=== PATIENT | female | born 1995 | race Caucasian/White ===

== ENCOUNTER 2019-05-09 00:01 | Inpatient (IN) ==
[2019-05-09] MEDS ORDERED: ONDANSETRON 4 MG TAB.RAPDIS PO PRN (00:05)
[2019-05-09] MEDS ORDERED: DEXTROSE 5%-LACTATED RINGERS 1,000 ML IV PRN (00:05)
[2019-05-09] MEDS ORDERED: OXYTOCIN/DEXTROSE 5%-WATER 30 UNITS/500 ML BAG IV ONE (00:05)
[2019-05-09] MEDS ORDERED: RINGER'S SOLUTION,LACTATED 1,000 ML IV ONE (00:05)
[2019-05-09] MEDS ORDERED: MISOPROSTOL 100 MCG TABLET VG PRN (00:05)
[2019-05-09 03:10] LABS: Cocaine Ur Negative (NEGATIVE); Urine Barbiturate Negative (NEGATIVE); Urine Benzodiazepines Negative (NEGATIVE); Urine Opiates Negative (NEGATIVE); Urine PCP Negative (NEGATIVE); Urine THC Negative (NEGATIVE)
--- NOTE | 2019-05-09 12:04 | HP ---
Chief Complaint - Chief Complaint Date of Service: 05/09/19 Time of Service: 12:03 - seen 0830 this am Chief Complaint: elective induction of labor History of Present Illness: 23 yo at 39 3/7 weeks admitted for elective induction of labor. This complicated by breech presentation with spontaneous conversion to cephalic at 37+ wks, and former smoker. Rh positive Rubellla nonimmune GBS negative Medical History (Updated 05/09/19 @ 12:04 by Dejuan Gold DO) Tobacco abuse (Chronic) 5 cig/d on 11/17/18. Anemia Onset Date: 02/17/19 w/ Blood in stool Constipation Diarrhea Dysmenorrhea Frequent headaches GERD (gastroesophageal reflux disease) Hemorrhoids Labial cyst Onset Date: ~08/18/17 Marijuana abuse Tobacco abuse Onset Date: ~08/18/17 Epidermoid cyst of labia majora (Resolved) excised. healing well. History of trichomoniasis Onset Date: ~08/18/17 History of wisdom tooth extraction Onset Date: ~2007 Ovarian cyst Onset Date: ~2002 Surgical History: Surgical History (Updated 04/26/19 @ 15:07 by Dejuan Gold DO) Status post excisional biopsy Onset Date: 05/04/18 Right labial cyst-No atypia or malignant neoplasia present History of esophagogastroduodenoscopy (EGD) 2008 [facility]-Neg, 2015-Mild to Moderate reflux esophagitis. History of laparoscopy Onset Date: ~2015 pelvic pain, dysmenorrhea-[facility] H/O colonoscopy with polypectomy Onset Date: ~2008 2008-[facility] polyps, 2015-benign polyp. recheck 10 years Family History: Family History (Updated 04/11/18 @ 16:25 by Alexa Pascal LPN) Father Hypertension Kidney disease Liver disease Benign essential tremor Mother Hypertension Cleft lip and cleft palate Diabetes borderline Grandfather Myocardial infarction Cancer Colon CA, leukemia Brother History of congenital heart defect Social History: (Last Updated 05/02/19 @ 10:02 by Dejuan Gold DO) Social History: adopted: No mcc: No Marital status: Single household members: significant other, children current occupational status: employed current occupation: [employer] current occupational exposures/hazards: No Highest education level completed: high school graduate Service: No Tobacco: Smoking Status: Current every day smoker tobacco type: cigarettes, e-cigarettes Smokeless tobacco user: chewing tobacco Alcohol: alcohol intake: former alcohol intake frequency: holiday/special occasion details: no alcohol since Substance Use: substance use type: former substance user Dietary Habits: caffeine: Yes caffeine comment: 20 oz Type: carbonated beverages Exercise: Physical activity type: none Review Of Systems (GEN) - Review of Systems Generalized/Overall Review: Present: No Symptoms Reported EENTM: Present: No Symptoms Reported Respiratory: Present: No Symptoms Reported Cardiac: Present: No Symptoms Reported Abdominal: Present: No Symptoms Reported Genitourinary: Present: No Symptoms Reported Musculoskeletal: Present: No Symptoms Reported Neurological: Present: No Symptoms Reported Skin: Present: No Symptoms Reported Endocrine: Present: No Symptoms Reported Immunizations: IMMUNIZATION HX Immunizations Up to Date Yes History of Influenza Vaccine No Hx Pneumococcal Vaccination No Allergies/Adverse Reactions: Allergies Allergy/AdvReac Type Severity Reaction Status Date / Time hydrocodone bitartrate AdvReac Mild ITCHING, Verified 05/02/19 09:03 [From Vicodin] RESTLESS, OCC RASH Home Medications: HOME MEDICATIONS acetaminophen 500 mg tablet 1,000 mg PO Q6H PRN tab 05/17/18 [Last Taken Unknown] breast pump See Dose Instructions .ROUTE .MEDSUPPLY #1 ea 11/18/18 [Last Taken Unknown] calcium carbonate 200 mg calcium (500 mg) chewable tablet 600 mg PO DAILY PRN tab 02/17/19 [Last Taken Unknown] Vits96/Iron Fum/Folic [ S] 1 tab PO DAILY 04/26/19 [Last Taken Unknown] Exam - Exam Vital Signs: Vital Signs - Last Taken Temp 36.8 C 05/09/19 00:30 Pulse 82 05/09/19 00:30 Resp 16 05/09/19 00:30 BP 99/58 05/09/19 00:30 Pulse Ox 97 05/09/19 00:30 Constitutional: Present: Alert, Oriented x3, Cooperative, No distress ENT Exam: Present: hearing grossly normal Breasts: Present: Exam deferred Respiratory: Present: lungs clear, no respiratory distress Cardiovascular/Chest: Present: normal peripheral pulses, regular rate, rhythm, no edema Abdomen: Present: soft, nontender, no rebound tenderness, other - gravid /Rectal: Present: Other - 1/50/-3 Extremity: Present: no pedal edema, no calf tenderness Skin Exam: Present: normal color, warm/dry, no cyanosis Neurologic: Present: alert, normal mood/affect, oriented x 3 Appearance: Present: appropriate appearance, appropriate insight Eye contact: Present: cooperative, good eye contact Thoughts: Present: normal thought pattern, normal mood /affect Diagnostic Studies: Laboratory Results Negative (NEGATIVE) 05/09/19 02:53 Negative (NEGATIVE) 05/09/19 02:53 Ur Phencyclidine Scrn Negative (NEGATIVE) 05/09/19 02:53 Urine Amphetamine Negative (NEGATIVE) 05/09/19 02:53 U Benzodiazepines Scrn Negative (NEGATIVE) 05/09/19 02:53 Negative (NEGATIVE) 05/09/19 02:53 Negative (NEGATIVE) 05/09/19 02:53 NST reactive Assessment/Plan - Assessment/Plan (1) Encounter for elective induction of labor Assessment: R/b/a to elective induction of labor discussed with patient. She desires to proceed with elective induction. Admit for Cytotec/Pitocin induction of labor. Epidural PRN. Rubella vaccine in office at PP visit. Problem: Acute (2) Rubella non-immune status, antepartum Problem: Acute
--- NOTE | 2019-05-09 12:05 | PN ---
Progess Note - Interim Date: 05/09/19 Time: 12:04 - Seen at 0830 this am Narrative: 05/09/19 12:04 Patient rating her contractions a 6-7 out of 10 Vital signs stable. Pitocin at 3 mu/min. FHT: 120 baseline, reassuring contractions q 2-3 min Cervix: 11/16 5/-3 Impression: Intrauterine at 39 3/7 weeks. Elective induction of labor Plan: Continue present plan 05/09/19 12:07
[2019-05-09] MEDS ORDERED: NALOXONE HCL 1 MG/1 ML SYRG IV PRN (13:52)
[2019-05-09] MEDS ORDERED: ONDANSETRON HCL/PF 2 MG/ML VIAL IV PRN (13:52)
[2019-05-09] MEDS ORDERED: BUPIVACAINE HCL/0.9 % NACL/PF 250 ML EP PRN (13:52)
[2019-05-09] MEDS ORDERED: fentaNYL CITRATE/PF 50 MCG/ML AMPUL IT SCH (14:00)
--- NOTE | 2019-05-09 15:39 | ANES ---
Anesthesia Pre Procedure Eval Vitals/Labs: Last Vital Signs Temp 36.8 C 05/09/19 00:30 Pulse 82 05/09/19 00:30 Resp 16 05/09/19 00:30 BP 99/58 05/09/19 00:30 Pulse Ox 97 05/09/19 00:30 HOME MEDICATIONS acetaminophen 500 mg tablet 1,000 mg PO Q6H PRN tab 05/17/18 [Last Taken Unknown] breast pump See Dose Instructions .ROUTE .MEDSUPPLY #1 ea 11/18/18 [Last Taken Unknown] calcium carbonate 200 mg calcium (500 mg) chewable tablet 600 mg PO DAILY PRN tab 02/17/19 [Last Taken Unknown] Vits96/Iron Fum/Folic [ S] 1 tab PO DAILY 04/26/19 [Last Taken Unknown] Allergies/Adverse Reactions: Allergies Allergy/AdvReac Type Severity Reaction Status Date / Time hydrocodone bitartrate AdvReac Mild ITCHING, Verified 05/02/19 09:03 [From Vicodin] RESTLESS, OCC RASH - Planned Procedure Planned Procedure: ELECTIVE INDUCTION 39 WKS 3 DAYS Medication List Reviewed:: Yes Allergies Verified: Yes Medical History (Updated 05/09/19 @ 12:34 by Dejuan Gold DO) Tobacco abuse (Chronic) 5 cig/d on 11/17/18. Anemia Onset Date: 02/17/19 w/ Blood in stool Constipation Diarrhea Dysmenorrhea Frequent headaches GERD (gastroesophageal reflux disease) Hemorrhoids Labial cyst Onset Date: ~08/18/17 Marijuana abuse Tobacco abuse Onset Date: ~08/18/17 Epidermoid cyst of labia majora (Resolved) excised. healing well. History of trichomoniasis Onset Date: ~08/18/17 History of wisdom tooth extraction Onset Date: ~2007 Ovarian cyst Onset Date: ~2002 Surgical History (Updated 04/26/19 @ 15:07 by Dejuan Gold DO) Status post excisional biopsy Onset Date: 05/04/18 Right labial cyst-No atypia or malignant neoplasia present History of esophagogastroduodenoscopy (EGD) 2008 [facility]-Neg, 2014-Mild to Moderate reflux esophagitis. History of laparoscopy Onset Date: ~2015 pelvic pain, dysmenorrhea-[facility] H/O colonoscopy with polypectomy Onset Date: ~2008 2008-[facility] polyps, 2015-benign polyp. recheck 10 years Family History (Updated 04/11/18 @ 16:25 by Alexa Pascal LPN) Father Hypertension Kidney disease Liver disease Benign essential tremor Mother Hypertension Cleft lip and cleft palate Diabetes borderline Grandfather Myocardial infarction Cancer Colon CA, leukemia Brother History of congenital heart defect - Family Anesthesia History Family History:: no untoward family reactions to anesthesia - Airway/Neck/Teeth Within Normal Limits:: Yes Teeth Condition: intact Neck Exam: full range of motion Mallampatti Score: 1 Thyromental (T-M) distance: > 6 cm Mandibulo Hyoid distance: > 3 cm - Respiratory Respiratory Physical: lungs clear Smoking Status: Former smoker Sleep Apnea currently treated: No Sleep Apnea by current assessment: No - Cardiovascular Tolerate Activity: Good Heart Sounds: S1 & S2, Regular - Anesthesia Assessment and Plan ASA Class: PS, II, E Anesthesia Type Plan: Epidural Planned difficult intubation/equipment available: No
--- NOTE | 2019-05-09 15:40 | ANES ---
Post Anesthesia Discharge - Transfer of Care Transfer of Care handoff given to nurse: Yes - Anesthesia Post Op Note Anesthesia Post Op Note: Care transferred to OB RN
--- NOTE | 2019-05-09 15:40 | ANES ---
Post Anesthesia Assessment - Vital Signs Vitals: Last Vital Signs Temp 36.8 C 05/09/19 00:30 Pulse 82 05/09/19 00:30 Resp 16 05/09/19 00:30 BP 99/58 05/09/19 00:30 Pulse Ox 97 05/09/19 00:30 Airway Patency: Normal - Mental Status Level Of Consciousness: Awake - Pain Level Pain Score: 2 - N/V Assessment Nausea/Vomiting Presence: None Dehydration:: No
--- NOTE | 2019-05-09 15:42 | ANES ---
Anesthesia Procedure Note Procedure Note: ANESTHESIA PROCEDURE NOTE Date of Procedure: 05/09/2019 Time of procedure: 1525. Performed by: Gilbert Constantino CRNA Dining Room Host: None. Preprocedure diagnosis: Active labor. Post procedure diagnosis: Same. Procedure: Insertion of labor epidural. Indications: The patient is a 23-year-old multigravida female in active labor requesting labor epidural for pain management. Findings: See below. Details of the procedure: The patient was placed in a sitting position. Back was prepped with DuraPrep. Patient was then draped in a sterile fashion. Lidocaine 1% was infiltrated to the skin and subcutaneous tissues at the level of the L3 4 interspace. The epidural space was identified using a 18-gauge Tuohy needle with [id number] technique. 20 mcg fentanyl was given intrathecally using a 27 ga. spinal needle. Epidural catheter was inserted without difficulty. Negative test dose was elicited using 5 mL of 1.5% preservative-free lidocaine plus epinephrine 1 200,000. The epidural catheter was then taped and secured in place. EBL: Minimal. Fluids: N/A. Specimen: N/A. Post procedure condition: The patient tolerated the procedure well. No complications were noted. Thank you for this consultation. Freeman CRNA
--- NOTE | 2019-05-09 18:50 | PN ---
Progess Note - Interim Date: 05/09/19 Time: 18:46 Narrative: Patient comfortable with epidural Vital signs stable. Pitocin at 9 mu/min. FHT: 120 baseline, reassuring contractions q 2-3 min Cervix: 8/60/-3, AROM-clear Impression: Intrauterine at 39 weeks. Elective induction of labor. Plan: Anticipate normal spontaneous vaginal delivery soon
--- NOTE | 2019-05-10 05:39 | PN ---
Progess Note - Interim Date: 05/10/19 Time: 05:33 Narrative: 05/10/19 05:33 Patient comfortable with epidural Vital signs stable. Pitocin at 7 mu/min. FHT: 140 baseline, just recently began having early decelerations with occasional late deceleration, good lsft-vs-xpyw variability contractions q 2-3 min Cervix: 8/90/-2, baby comes down to +1 with contraction, unable to reduce cervix over baby's head Impression: Intrauterine at 39-4/7 weeks. Elective induction of labor with protracted dilation Plan: Multiple position changes have been tried will continue with additional position changes for the next 2030 minutes, if no change will proceed with section. Risks benefits alternatives to section discussed with patient and family. All questions answered.
--- NOTE | 2019-05-10 06:58 | OR ---
Operative Report - Dictated Report Narrative: Spontaneous vaginal delivery of vigorously crying viable male at 0634 on 05/10/2019 with Apgars 9 and 9, weighing 3329 g in CAS position. Cord clamping delayed approximately 1 minute Placenta delivered complete, intact, with three vessel cord Estimated blood loss: Less than 50 ml Anesthesia: Epidural Lacerations: None History for MU History for MU Definition: * The number of deliveries resulting in a live the patient experienced prior to current hospitalization * The previous delivery of live twins or any live multiple gestation is considered one live event. *If primagravida or nulliparous is documented select zero for the number of previous live births. Live Events: Live Events: 1
[2019-05-10] MEDS ORDERED: HYDROCORTISONE 30 APPL TUBE TP PRN (07:04)
[2019-05-10] MEDS ORDERED: BISACODYL 10 MG SUPP.RECT RC PRN (07:04)
[2019-05-10] MEDS ORDERED: GLYCERIN/WITCH HAZEL LEAF 40 APPL BOX TP PRN (07:04)
[2019-05-10] MEDS ORDERED: SENNOSIDES 8.6 MG TABLET PO PRN (07:04)
[2019-05-10] MEDS ORDERED: ACETAMINOPHEN 325 MG TABLET PO PRN (07:04)
[2019-05-10] MEDS ORDERED: OXYTOCIN/DEXTROSE 5%-WATER 30 UNITS/500 ML BAG IV ONE (07:04)
[2019-05-10] MEDS ORDERED: BENZOCAINE/MENTHOL 81 SPRAY CAN TP PRN (07:04)
[2019-05-10] MEDS ORDERED: CALCIUM CARBONATE 500 MG TAB.CHEW PO PRN (07:05)
[2019-05-10] MEDS: IBUPROFEN 800 MG TABLET PO PRN ×2 (09:01→15:06)
[2019-05-10] MEDS: PRENATAL VITS96/IRON FUM/FOLIC 1 TAB TABLET PO SCH (09:02)
[2019-05-10] MEDS: DOCUSATE SODIUM 100 MG CAPSULE PO SCH ×2 (09:02→20:56)
[2019-05-10] MEDS: oxyCODONE HCL/ACETAMINOPHEN 1 TAB TABLET PO PRN ×3 (11:28→20:56)
[2019-05-11] MEDS: oxyCODONE HCL/ACETAMINOPHEN 1 TAB TABLET PO PRN ×4 (00:58→23:41)
--- NOTE | 2019-05-11 06:47 | PN ---
Subjective - Date and Time Seen Date: 05/11/19 Time: 06:46 Objective - Vitals Vitals: Last Vital Signs Temp 36.6 C 05/11/19 00:44 Pulse 64 05/11/19 00:44 Resp 16 05/11/19 00:44 BP 112/59 05/11/19 00:44 Pulse Ox 98 05/11/19 00:44 Patient denies complaints. Breast-feeding well Lochia wnl abdomen - soft, nontender Uterus -firm, at umbilicus - 1 no calf tenderness Impression: day #1 - s/p spontaneous vaginal delivery. Plan: Continue routine care Cauti Physician Documentation - Urinary Catheter Management Urethral ([place]son) Date of Insertion: 05/09/19 Time of Insertion: 16:30 Date of Removal: 05/10/19 Time of Removal: 06:15 Assessment/Plan - Problems/Diagnosis (1) Encounter for elective induction of labor Problem: Acute (2) Rubella non-immune status, antepartum Problem: Acute
[2019-05-11] MEDS: PRENATAL VITS96/IRON FUM/FOLIC 1 TAB TABLET PO SCH (09:44)
[2019-05-11] MEDS: DOCUSATE SODIUM 100 MG CAPSULE PO SCH ×2 (09:44→21:14)
[2019-05-12] MEDS: oxyCODONE HCL/ACETAMINOPHEN 1 TAB TABLET PO PRN ×2 (07:13→11:36)
[2019-05-12 07:22] VITALS: BP 100/58
--- NOTE | 2019-05-12 08:43 | PN ---
Subjective - Date and Time Seen Date: 05/12/19 Time: 08:43 Objective - Vitals Vitals: Last Vital Signs Temp 36.7 C 05/12/19 07:18 Pulse 54 L 05/12/19 07:18 Resp 18 05/12/19 07:18 BP 100/58 05/12/19 07:18 Pulse Ox 100 05/12/19 07:18 Patient denies complaints. Breast-feeding well Lochia wnl abdomen - soft, nontender Uterus -firm, at umbilicus - 2 no calf tenderness Impression: day #2 - s/p spontaneous vaginal delivery. Plan: Routine discharge instructions Cauti Physician Documentation - Urinary Catheter Management Urethral (Mattson) Date of Insertion: 05/09/19 Time of Insertion: 16:30 Date of Removal: 05/10/19 Time of Removal: 06:15 Assessment/Plan - Problems/Diagnosis (1) Encounter for elective induction of labor Problem: Acute (2) Rubella non-immune status, antepartum Problem: Acute
[2019-05-12] MEDS: DOCUSATE SODIUM 100 MG CAPSULE PO SCH (11:36)
== END 2019-05-12 12:20 | disposition home or self-care (01) | DRG 807 ==
LOC: OB 00:01 → MS 05-11 03:07
PROVIDERS: ADMIT Obstetrics & Gynecology; ATTEND Obstetrics & Gynecology
CPT/HCPCS: 59025; 80307